=== PATIENT | male | born 1950 | race Caucasian/White ===

== ENCOUNTER 2021-12-07 10:02 | Outpatient (CLI) | payer MEDICARE | END 2021-12-07 10:03 | disposition home or self-care (01) | LOC: SCSMRI 10:02 | PROVIDERS: ATTEND Nurse Practitioner Family | DX: M54.42 Lumbago with sciatica, left side (principal); R60.0 Localized edema; M48.061 Spinal stenosis, lumbar region without neurogenic claudication; M48.07 Spinal stenosis, lumbosacral region | CPT/HCPCS: 72148 ==

== ENCOUNTER 2021-12-10 10:25 | Outpatient (CLI) | payer MEDICARE | END 2021-12-10 10:26 | disposition home or self-care (01) | LOC: TBSIIMAG 10:25 | PROVIDERS: ATTEND Anesthesiology Pain Medicine | DX: S32.10XA Unspecified fracture of sacrum, initial encounter for closed fracture (principal); S76.211A Strain of adductor muscle, fascia and tendon of right thigh, initial encounter | CPT/HCPCS: 72195 ==

== ENCOUNTER 2022-05-17 14:02 | Inpatient (IN) | payer OTHER, MEDICARE ==
[~2022-05-17 14:02] MED LIST: Iopamidol 370 76% 100 ML VIAL ONE
[2022-05-17] MEDS ORDERED: Morphine 4 MG/ML VIAL ONE (14:19)
[2022-05-17 14:37] LABS: Hemoglobin 15.6 g/dL (14.0-18.0); Mean Corpuscular HGB CONC 32.9 g/dL (32.0-36.0); Mean Corpuscular Hemoglobin 28.9 pg (27.0-31.0); RBC Distribution Width 11.8 % (11.5-14.5); Red Blood Cell (RBC) Count 5.39 mill/uL (4.70-6.10)
[2022-05-17 14:51] LABS: Lymphocytes 4 % (21-51); MDiff Complete? YES; Mean Platelet Volume 7.6 fL (7.4-10.4); Monocytes 14 % (0-10); Neutrophil 82 % (42-75); Platelet Count 240 thou/uL (130-400); Platelet Morphology Comment Appears Adequate; White Blood Cell (WBC) Count 21.1 thou/uL (4.8-10.8)
[2022-05-17 14:53] LABS: ALT (SGPT) 31 U/L (8-55); AST (SGOT) 61 U/L (5-34); Albumin 4.3 g/dL (3.4-4.8); Alkaline Phosphatase 93 U/L (40-110); Anion Gap 16 mmol/L (10-20); BUN (Urea Nitrogen) 20 mg/dL (8.4-25.7); Bilirubin, Total 0.9 mg/dL (0.2-1.2); CK (CPK) 3369 U/L (30-200); Calc. Creatinine Clearance 0 mL/min (70-130); Calcium 8.9 mg/dL (7.8-10.44); Carbon Dioxide 23 mmol/L (23-31); Chloride 104 mmol/L (98-107); Estimated GFR 67; Globulin 3.1 g/dL (2.4-3.5); Glucose 185 mg/dL (83-110); Lipase 12 U/L (8-78); Potassium 4.2 mmol/L (3.5-5.1); Protein, Total 7.4 g/dL (5.8-8.1); Sodium 139 mmol/L (136-145)
[2022-05-17] MEDS ORDERED: Dextrose 50% Abboject 50 ML SYRINGE SLOW IVP PRN (16:20)
[2022-05-17] MEDS ORDERED: Dextrose 5% in Water 1,000 ML IV PRN (16:20)
[2022-05-17] MEDS ORDERED: TETANUS, DIPHTHERIA TOX,ADULT (TDVAX) 0.5 ML VIAL IM ONE (16:20)
[2022-05-17] MEDS ORDERED: hydrALAZINE 20 MG/ML VIAL SLOW IVP PRN (16:20)
[2022-05-17] MEDS ORDERED: Promethazine HCl 25 MG/ML VIAL IM PRN (16:20)
[2022-05-17] MEDS ORDERED: Morphine 4 MG/ML VIAL SLOW IVP PRN ×2 (16:20→18:22)
[2022-05-17] MEDS ORDERED: Ondansetron PF 4 MG/2 ML Vial IVP PRN (16:20)
[2022-05-17] MEDS ORDERED: Cyclobenzaprine 10 MG TAB PO PRN (16:27)
[2022-05-17] MEDS ORDERED: traMADol HCl 50 MG TAB PO PRN (16:27)
[2022-05-17 16:51] LABS: Magnesium 1.9 mg/dL (1.6-2.6)
[2022-05-17 17:16] LABS: Phosphorus 1.9 mg/dL (2.3-4.7)
[2022-05-17 17:40] LABS: Lactic Acid 1.8 mmol/L (0.5-2.2)
[2022-05-17] MEDS ORDERED: Magnesium 2 GM/50 ML(in water) 2 GM in Premix Bag 1 BAG IVPB SCH (17:45)
[2022-05-17 17:56] LABS: Troponin I 0.015 ng/mL (< 0.028)
[2022-05-17] MEDS: Gabapentin 100 MG CAP PO SCH (18:36)
[2022-05-17] MEDS: Ketorolac Tromethamine 30 MG/ML VIAL IVP SCH ×2 (18:37→23:43)
[2022-05-17] MEDS: traMADol HCl 50 MG TAB PO SCH ×2 (18:38→23:41)
[2022-05-17] MEDS: Sodium Chloride 0.9% 1,000 ML IV SCH (21:39)
[2022-05-17] MEDS: Famotidine 20 MG TAB PO SCH (21:53)
[2022-05-17] MEDS: Senokot S 8.6-50 MG TAB PO SCH (21:54)
[2022-05-17 22:32] VITALS: BMI 30.3
[2022-05-17 23:48] LABS: SARS-CoV-2 NAA Rapid Test Not Detected (NotDetected)
[2022-05-18] MEDS: Gabapentin 100 MG CAP PO SCH ×3 (03:03→21:05)
[2022-05-18 05:42] LABS: #Eosinphils 0.1 thou/uL (0.0-0.7); #Lymphocytes 1.4 thou/uL (1.20-3.40); #Neutrophils 9.8 thou/uL (1.40-6.50); %Basophils 0.2 % (0.0-1.0); %Eosinophils 0.5 % (0.0-10.0); %Monocytes 8.4 % (0.0-10.0); %Neutrophils 79.9 % (42.0-75.0); Hemoglobin 13.9 g/dL (14.0-18.0); Mean Corpuscular HGB CONC 32.6 g/dL (32.0-36.0); Mean Corpuscular Hemoglobin 29.1 pg (27.0-31.0); Mean Corpuscular Volume 89.3 fL (78.0-98.0); Mean Platelet Volume 7.2 fL (7.4-10.4); Platelet Count 178 thou/uL (130-400); RBC Distribution Width 11.8 % (11.5-14.5); Red Blood Cell (RBC) Count 4.77 mill/uL (4.70-6.10); White Blood Cell (WBC) Count 12.3 thou/uL (4.8-10.8)
[2022-05-18] MEDS: traMADol HCl 50 MG TAB PO SCH ×3 (05:52→17:08)
[2022-05-18] MEDS: Ketorolac Tromethamine 30 MG/ML VIAL IVP SCH ×3 (05:53→17:08)
[2022-05-18 06:22] LABS: Anion Gap 11 mmol/L (10-20); BUN (Urea Nitrogen) 19 mg/dL (8.4-25.7); Calc. Creatinine Clearance 101 mL/min (70-130); Calcium 8.1 mg/dL (7.8-10.44); Carbon Dioxide 25 mmol/L (23-31); Chloride 106 mmol/L (98-107); Estimated GFR 82; Glucose 125 mg/dL (83-110); Magnesium 2.6 mg/dL (1.6-2.6); Phosphorus 3.9 mg/dL (2.3-4.7); Potassium 4.6 mmol/L (3.5-5.1); Sodium 137 mmol/L (136-145)
[2022-05-18 06:49] LABS: CK (CPK) 4881 U/L (30-200)
[2022-05-18] MEDS: Senokot S 8.6-50 MG TAB PO SCH ×3 (08:34→21:07)
[2022-05-18] MEDS: Polyethylene Glycol 3350 17 GM Packet PO SCH (08:35)
[2022-05-18] MEDS: Famotidine 20 MG TAB PO SCH ×2 (08:35→21:03)
[2022-05-18] MEDS: Carvedilol 3.125 MG TAB PO SCH ×2 (09:00→21:04)
[2022-05-18] MEDS: Acetaminophen 325 MG TAB PO SCH ×2 (11:26→17:07)
[2022-05-18] MEDS: Sodium Chloride 0.9% 1,000 ML IV SCH (11:32)
[2022-05-18] MEDS ORDERED: traMADol HCl 50 MG TAB PO SCH (12:00)
[2022-05-19] MEDS: Acetaminophen 325 MG TAB PO SCH ×4 (00:17→17:23)
[2022-05-19] MEDS: traMADol HCl 50 MG TAB PO SCH ×4 (00:18→17:23)
[2022-05-19] MEDS: Ketorolac Tromethamine 30 MG/ML VIAL IVP SCH ×4 (00:19→17:24)
[2022-05-19] MEDS: Gabapentin 100 MG CAP PO SCH ×2 (03:42→08:40)
[2022-05-19 07:57] LABS: #Eosinphils 0.5 thou/uL (0.0-0.7); #Lymphocytes 1.6 thou/uL (1.20-3.40); #Neutrophils 10.2 thou/uL (1.40-6.50); %Basophils 0.4 % (0.0-1.0); %Eosinophils 3.6 % (0.0-10.0); %Monocytes 7.5 % (0.0-10.0); %Neutrophils 76.6 % (42.0-75.0); Hemoglobin 12.9 g/dL (14.0-18.0); Mean Corpuscular HGB CONC 33.3 g/dL (32.0-36.0); Mean Corpuscular Hemoglobin 29.9 pg (27.0-31.0); Mean Corpuscular Volume 89.6 fL (78.0-98.0); Platelet Count 153 thou/uL (130-400); Red Blood Cell (RBC) Count 4.33 mill/uL (4.70-6.10); White Blood Cell (WBC) Count 13.3 thou/uL (4.8-10.8)
[2022-05-19 08:18] LABS: Anion Gap 13 mmol/L (10-20); BUN (Urea Nitrogen) 27 mg/dL (8.4-25.7); CK (CPK) 3949 U/L (30-200); Calc. Creatinine Clearance 105 mL/min (70-130); Calcium 8.4 mg/dL (7.8-10.44); Carbon Dioxide 20 mmol/L (23-31); Chloride 106 mmol/L (98-107); Estimated GFR 85; Glucose 121 mg/dL (83-110); Magnesium 2.3 mg/dL (1.6-2.6); Phosphorus 2.4 mg/dL (2.3-4.7); Potassium 4.8 mmol/L (3.5-5.1); Sodium 134 mmol/L (136-145)
[2022-05-19] MEDS: Famotidine 20 MG TAB PO SCH ×2 (08:38→21:08)
[2022-05-19] MEDS: Carvedilol 3.125 MG TAB PO SCH ×2 (08:38→21:07)
[2022-05-19] MEDS: Polyethylene Glycol 3350 17 GM Packet PO SCH (08:39)
[2022-05-19] MEDS ORDERED: traMADol HCl 50 MG TAB PO PRN (10:19)
[2022-05-19] MEDS ORDERED: Enoxaparin Sodium 40 MG/0.4 ML SYRINGE SC SCH (10:30)
[2022-05-19] MEDS: Ondansetron ODT 4 MG TAB PO PRN (11:07)
[2022-05-19] MEDS: Gabapentin 300 MG CAP PO SCH (17:22)
[2022-05-19] MEDS: Senokot S 8.6-50 MG TAB PO SCH (21:08)
[2022-05-19 21:16] VITALS: BP 146/78; TEMP 97
[2022-05-19] MEDS ORDERED: Ibuprofen 200 MG TAB PO PRN (21:57)
[2022-05-20] MEDS: traMADol HCl 50 MG TAB PO SCH ×4 (00:29→17:44)
[2022-05-20] MEDS: Gabapentin 300 MG CAP PO SCH ×3 (00:31→17:45)
[2022-05-20] MEDS: Acetaminophen 325 MG TAB PO SCH ×4 (00:31→17:44)
[2022-05-20] MEDS: Ondansetron ODT 4 MG TAB PO PRN (07:23)
[2022-05-20] MEDS ORDERED: Enoxaparin Sodium 40 MG/0.4 ML SYRINGE SC SCH (09:00)
[2022-05-20] MEDS: Senokot S 8.6-50 MG TAB PO SCH (09:13)
[2022-05-20] MEDS: Polyethylene Glycol 3350 17 GM Packet PO SCH (09:14)
[2022-05-20] MEDS: Carvedilol 3.125 MG TAB PO SCH (09:14)
[2022-05-20] MEDS: Famotidine 20 MG TAB PO SCH (09:14)
== END 2022-05-20 22:01 | DRG 964 ==
LOC: ERS 14:02 → SURG A 18:11
PROVIDERS: ADMIT Specialist; ATTEND Surgery
DX: S27.329A Contusion of lung, unspecified, initial encounter (principal); S22.018A Other fracture of first thoracic vertebra, initial encounter for closed fracture; S32.10XA Unspecified fracture of sacrum, initial encounter for closed fracture; S22.20XA Unspecified fracture of sternum, initial encounter for closed fracture; S32.018A Other fracture of first lumbar vertebra, initial encounter for closed fracture; S22.32XA Fracture of one rib, left side, initial encounter for closed fracture; S22.048A Other fracture of fourth thoracic vertebra, initial encounter for closed fracture; S22.058A Other fracture of T5-T6 vertebra, initial encounter for closed fracture; T79.6XXA Traumatic ischemia of muscle, initial encounter; I10 Essential (primary) hypertension; Z20.822 Contact with and (suspected) exposure to COVID-19; B19.20 Unspecified viral hepatitis C without hepatic coma; X58.XXXA Exposure to other specified factors, initial encounter; Z96.653 Presence of artificial knee joint, bilateral; Y92.89 Other specified places as the place of occurrence of the external cause; Z87.891 Personal history of nicotine dependence
CPT/HCPCS: 36415; 70450; 71045; 71260; 72125; 74177; 80048; 80053; 82550; 83605; 83690; 83735; 84100; 84484; 85025; 86850; 86900; 86901; 93005; 94640; 96374; G0390; J1650; J1885; J2270; J2405; J2550; J3475; J7050; J7620; Q0162; Q9967; U0002

== ENCOUNTER 2022-05-26 12:31 | Outpatient (CLI) | payer MEDICARE, OTHER | END 2022-05-26 12:32 | disposition home or self-care (01) | LOC: RAD 12:31 | PROVIDERS: ATTEND Physical Medicine & Rehabilitation | DX: R05.1 Acute cough (principal); J90 Pleural effusion, not elsewhere classified | CPT/HCPCS: 71046 ==

== ENCOUNTER 2022-06-03 09:40 | Outpatient (CLI) | payer MEDICARE | END 2022-06-03 09:41 | disposition home or self-care (01) | LOC: TBSIIMAG 09:40 | PROVIDERS: ATTEND Surgery | DX: M54.16 Radiculopathy, lumbar region (principal); S22.39XA Fracture of one rib, unspecified side, initial encounter for closed fracture; J90 Pleural effusion, not elsewhere classified; J98.11 Atelectasis | CPT/HCPCS: 71046; 72072; 72100 ==

== ENCOUNTER 2022-06-03 11:16 | Outpatient (CLI) | payer MEDICARE | END 2022-06-03 11:17 | disposition home or self-care (01) | LOC: SCSRAD 11:16 | PROVIDERS: ATTEND Surgery | DX: S22.39XA Fracture of one rib, unspecified side, initial encounter for closed fracture (principal); J90 Pleural effusion, not elsewhere classified; J98.11 Atelectasis | CPT/HCPCS: 71046 ==

== ENCOUNTER 2022-09-28 12:08 | Outpatient (CLI) | payer MEDICARE | END 2022-09-28 12:09 | disposition home or self-care (01) | LOC: TBSIIMAG 12:08 | PROVIDERS: ATTEND Nurse Practitioner Family | DX: S22.040A Wedge compression fracture of fourth thoracic vertebra, initial encounter for closed fracture (principal); S22.050A Wedge compression fracture of T5-T6 vertebra, initial encounter for closed fracture; M51.34 Other intervertebral disc degeneration, thoracic region | CPT/HCPCS: 72146 ==